=== PATIENT | female | born 1985 | race Caucasian/White ===

== ENCOUNTER → 2020-03-24 12:53 | Outpatient (CLI) | payer OTHER, SELFPAY ==
--- NOTE | ~2020-03-24 | XR_ITS ---
EXAMINATION: XR hand LT 2V, XR hand RT 2V DATE: 03/24/2020 13:54 INDICATION: Polyarticular arthralgia TECHNIQUE: 1. Posteroanterior and lateral views of the left hand were obtained. 2. Posteroanterior and lateral views of the right hand were obtained. COMPARISON: None. FINDINGS: Normal alignment at the bilateral hands and wrists. No fracture. Joint spaces are normal. No cortical erosions. There are few scattered bone islands including at the proximal pole of the left scaphoid t he base of the left fourth proximal phalanx and at the base of the right first metacarpal. Soft tissu es are unremarkable. IMPRESSION: 1. Normal joint spaces in both hands with no erosions to suggest an inflammatory arthritis. Reviewed, dictated and finalized at location A. IMPRESSION: 1. Normal joint spaces in both hands with no erosions to suggest an inflammator y arthritis.
--- NOTE | ~2020-03-24 | XR_ITS ---
EXAMINATION: XR foot LT min 3V, XR foot RT min 3V DATE: 03/24/2020 13:54 INDICATION: Polyarticular arthralgias TECHNIQUE: 1. Dorsoplantar, two oblique and lateral views of the left foot were obtained. 2. Dorsoplantar, two oblique and lateral views of the right foot were obtained. COMPARISON: None. FINDINGS: Alignment is normal at both feet. No fracture. Joint spaces are normal. No erosions. There are a few scattered bone islands. In addition there are axially oriented dense striations in the bilateral dist al tibial metaphyses, 2 on the left and one on the right. A similar linear sclerotic serration was se en at the proximal left tibia on the radiographs of the knee which on initial review was thought to c orrespond to the anterior tibial tuberosity. 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 Soft tissues are unremarkable. No ankle joint effusions. IMPRESSION: 1. Normal joint spaces. No erosions to suggest an inflammatory arthritis. Reviewed, dictated and finalized at location A. IMPRESSION: 1. Normal joint spaces. No erosions to suggest an inflammatory arthritis.
--- NOTE | ~2020-03-24 | XR_ITS ---
XR chest 2V DATE: 03/24/2020 13:54 INDICATION: Arthralgia TECHNIQUE: PA and lateral views COMPARISON: None FINDINGS: Normal heart size. No hilar or mediastinal enlargement. No pulmonary infiltrate or consolid ation, pleural effusion or pulmonary vascular congestion or pneumothorax. Included skeletal structures are unremarkable. IMPRESSION: No active cardiopulmonary disease Reviewed, dictated and finalized at location A.
== END ==
PROVIDERS: Visit Provider Physician Assistant
DX: M25.50 Pain in unspecified joint (principal)
CPT/HCPCS: 71046; 73120; 73630

== ENCOUNTER → 2020-03-24 13:01 | Outpatient (CLI) | payer OTHER, SELFPAY ==
--- NOTE | ~2020-03-24 | XR_ITS ---
EXAMINATION: XR hip BI wo pelvis DATE: 03/24/2020 13:54 INDICATION: Polyarticular arthralgias TECHNIQUE: Anteroposterior and frog-leg lateral views of the left and right hips were obtained. COMPARISON: None. FINDINGS: Normal alignment at both hips. No fracture or suspected avascular necrosis. Joint spaces are normal a t the bilateral hip and sacroiliac joints. Phlebolith in the pelvis. Soft tissues are unremarkable. IMPRESSION: 1. Negative bilateral hip radiographs. Reviewed, dictated and finalized at location A.
--- NOTE | ~2020-03-24 | XR_ITS ---
EXAMINATION: XR knee LT 3V, XR knee RT 3V DATE: 03/24/2020 13:54 INDICATION: Polyarticular arthralgia TECHNIQUE: 1. Weight bearing anteroposterior, sunrise, and flexed lateral views of the left knee were obtained. 2. Weight bearing anteroposterior, sunrise, and flexed lateral views of the right knee were obtained. COMPARISON: None. FINDINGS: Alignment is normal. No fracture. No joint effusion/layering lipohemarthrosis. There few small scatt ered bone islands at the bilateral knees. Indolent appearing small ovoid lucent lesion with periphera l thin sclerotic margins at the posterolateral metaphyseal region of the distal right femur consisten t with a cortical desmoid (tug lesion) which likely of no clinical significance. Soft tissues are unr emarkable. IMPRESSION: 1. Normal joint spaces at the bilateral knees with no joint effusions. Reviewed, dictated and finalized at location A. IMPRESSION: 1. Normal joint spaces at the bilateral knees with no joint effusions.
== END ==
DX: M25.50 Pain in unspecified joint (principal)
CPT/HCPCS: 73521; 73562

== ENCOUNTER 2024-06-06 18:05 | Emergency (ER) | payer OTHER, SELFPAY ==
--- NOTE | ~2024-06-06 | XR_ITS ---
XR foot RT min 3V Ordering provider: El Grey APRN History: . pain over the right proximal great toe and midfoot,no trauma . Comparison: March 24, 2020 FINDINGS: BONES: No acute fracture or dislocation. JOINT SPACES: Normal. No tarsal coalition. SOFT TISSUES: Normal. IMPRESSION: No acute osseous abnormality of the right foot. Reviewed, dictated and finalized at location A.
[2024-06-06 18:20] VITALS: BP 123/69; PULSE 78; RESP 18; TEMP 36.7; O2SAT 100
--- NOTE | 2024-06-06 18:20 | ED.LOWEXIN ---
HPI - Extremity Injury (Lower) General Chief Complaint: Extremity Injury, Lower Stated Complaint: RT Foot Pain Time Seen by Provider: 06/06/24 18:20 Source: patient Mode of arrival: ambulatory Limitations: no limitations History of Present Illness HPI Narrative: Kim is a 38-year-old female patient presenting to the clinic today with complaints of right foot pain x1 week. She reports that she injured her foot when playing tennis last week. Had attempted to play tennis with her son today and her foot is still bothering her. Has pain to the proximal right great toe and over the midfoot. No obvious bruising or swelling. Related Data Home Medications Medication Instructions Recorded Confirmed No Home Medications 06/06/24 06/06/24 Allergies Allergy/AdvReac Type Severity Reaction Status Date / Time nitrofurantoin Allergy Unknown Unknown Verified 06/06/24 18:21 Sulfa (Sulfonamide Allergy Unknown -swelling Verified 06/06/24 18:21 Antibiotics) Review of Systems Review of Systems: Pertinent positives per HPI. Patient denies any fever, chills, rash, headache, visual changes, dizziness, cough, runny nose, sore throat, shortness of breath, chest pain, palpitations, nausea, vomiting, diarrhea, constipation, abdominal pain, or any urinary issues. PMFSH Comments At the time of my signature, I reviewed and agree with the nursing past medical, surgical, social, and family history. There is no relevant family history pertinent to the patient complaint. Exam Narrative: General: Well-developed, well nourished, in no apparent distress Head: Normocephalic, atraumatic. Cardio: Regular rate and rhythm, s1 and s2 normal, no murmur appreciated. Resp: Clear to auscultation bilaterally, no rhonchi, rales, wheezing or rubs. Musculoskeletal: No deformity, no bruising or swelling, tender to palpation over the proximal right great toe and midfoot, grossly normal range of motion, muscle strength strong and equal, peripheral pulse strong, no edema, no cyanosis, normal gait and station Course Course Emergency Course: Portions of this record may have been created with voice recognition software. Level of Care: Express Care Visit Vital Signs Vital signs: Vital signs reviewed MDM - Extremity Injury (Lower) MDM Narrative Medical decision making narrative: At the time of visit patient is resting comfortably on the exam table. Patient appears to be nontoxic. Diagnostics: X-rays negative for any sign of fracture or malalignment of the right foot Plan: I suspect patient has foot strain/acute foot pain. Supportive measures were discussed with the patient and they voiced understanding discharge instructions and agrees to treatment plan. Return precautions reviewed Imaging Data Radiologist's impression: ITS Impressions Foot X-Ray 06/06/24 18:44 IMPRESSION: No acute osseous abnormality of the right foot. Discharge Plan Discharge Clinical Impression: Acute pain of right foot Patient Disposition: Home, Self-Care Condition: Stable Instructions: Antibiotic Form, Foot Sprain (ED) Additional Instructions: X-ray of the right foot is negative for any sign of fracture or malalignment. Rest, ice, elevate as directed Tylenol/motrin for pain as discussed. Gradually bear weight No running or sports until healed. Follow up with your PCP if symptoms persist more than 1 week. May need further evaluation to rule out stress fracture Prescriptions: No Action No Home Medications Follow-up/Referrals: Vane Barragan MD [Primary Care Provider] - Time of Disposition: 18:59 Quality [facility] Nursing [facility]: reviewed/agree
== END 2024-06-06 19:05 | disposition home or self-care (01) ==
PROVIDERS: Emergency Provider Nurse Practitioner Family; PCP Family Medicine
DX: M79.671 Pain in right foot (principal)
CPT/HCPCS: 73630; 99213; G0463

== ENCOUNTER 2024-07-10 08:03 | Emergency (ER) | payer OTHER, SELFPAY ==
--- NOTE | ~2024-07-10 | XR_ITS ---
EXAMINATION: XR chest 2V DATE: 07/10/2024 09:08 INDICATION: Cough and fever TECHNIQUE: PA and lateral views of the chest were obtained. COMPARISON: Chest radiograph dated 03/24/2020 FINDINGS: 3.5 x 2.2 cm nodular opacity lateral left midlung zone. No other airspace opacities, pulmonary edema, pleural effusion or pneumothorax. The cardiomediastinal silhouette is normal. Mild thoracic spondylo sis with chronic mild anterior wedging of a few mid thoracic vertebral bodies. IMPRESSION: 1. Large nodular opacity in the lateral left midlung zone which given patient age and provided histor y most likely represents pneumonia. Recommend radiographic follow-up to resolution. Reviewed, dictated and finalized at location A. ER OPERATOR IMPRESSION: 1. Large nodular opacity in the lateral left midlung zone which given patient a ge and provided history most likely represents pneumonia. Recommend radiographi c follow-up to resolution.
--- NOTE | 2024-07-10 08:22 | ED.URI ---
HPI - URI/Sore Throat General Chief Complaint: Upper Respiratory Infection Stated Complaint: cough and fever Time Seen by Provider: 07/10/24 08:36 Source: patient, RN notes reviewed and old records reviewed Mode of arrival: ambulatory Limitations: no limitations History of Present Illness HPI Narrative: 38-year-old female presents to the [facility] with cough for about 1 week. Fever started on , 2 days ago. Has taken Tylenol. No other medications to help with symptoms. States that she was fatigued, called in sick to work yesterday and stated bed. Patient did declined flu and COVID testing Related Data Allergies Allergy/AdvReac Type Severity Reaction Status Date / Time nitrofurantoin Allergy Unknown Unknown Verified 07/10/24 08:26 Sulfa (Sulfonamide Allergy Unknown -swelling Verified 07/10/24 08:26 Antibiotics) Review of Systems Review of Systems: All systems reviewed & are unremarkable except as noted in HPI and below Constitutional: Constitutional: Reports as per HPI, Reports body ache(s), Reports fatigue and Reports fever(s) ENT: Reports as per HPI and Reports sore throat Cardiovascular: Cardiovascular: Reports no additional cardiovascular complaints, Denies chest pain and Denies dyspnea Respiratory: Respiratory: Reports as per HPI, Denies chest congestion, Reports cough and Denies dyspnea Gastrointestinal: Gastrointestinal: Reports no additional gastrointestinal complaints, Denies abdominal pain, Denies nausea and Denies vomiting Musculoskeletal: Musculoskeletal: Reports no additional musculoskeletal complaints Integumentary/Breasts: Skin/Breast: Reports system reviewed and no additional complaints, except as docu PMFSH Comments At the time of my signature, I reviewed and agree with the nursing past medical, surgical, social, and family history. There is no relevant family history pertinent to the patient complaint. Exam Const: General: cooperative, healthy appearing, comfortable, no acute distress, well developed, alert and well nourished Nutritional Appearance: well nourished Orientation/consciousness: patient oriented x3 Limitations: no limitations HENMT: Head: normal to inspection Ears: hearing grossly normal bilaterally, external ears normal, TM's normal bilaterally, EAC's normal, mastoids normal and no periauricular adenopathy Face/Nose/Sinus: Normal external nose present, normal facial exam and face symmetric Face and sinus: normal facial exam and face symmetric Mouth: Yes Normal oral and palatal mucosa present, Yes lip normal and Yes tongue normal Throat: posterior oropharynx normal, uvula midline and no uvular edema Eyes: General: appearance normal, both eyes and all related structures Alignment and Position: alignment normal Periorbital: periorbital findings normal Neck: Neck: normal visual inspection, full ROM, no lymphadenopathy and no meningeal signs Chest: Chest palpation & inspection: normal inspection of the chest Resp: Effort & Inspection: normal respiratory effort and able to speak in complete sentences Auscultation: clear to auscultation bilaterally, no crackles, no rales, no rhonchi, no wheezes and diminished lung sounds on the left in the lower lung petit Cardio: Rate: regular rate Skin: General skin exam: normal color and no rashes or lesions noted Lesions: no lesions Rashes: no rashes Wounds: no wounds Neuro: General: patient oriented x3, gait normal, tone normal, moves all extremities and no meningeal signs Cognition (Neuro): normal cognition Speech: normal speech Gait exam (Neuro): Normal gait present Extrem: General: normal to inspection, full ROM, capillary refill normal and normal gait Psych: Appearance: grossly normal and well kempt Mental Status: mental status grossly normal Speech and movement: Normal speech and movement present and Clear speech present Affect: normal affect Attitude: cooperative Course Course Level of Care: Express Care Visit Vital Signs Vital signs: Vital Signs Temperature 98.1 F 07/10/24 08:27 Pulse Rate 67 07/10/24 08:27 Respiratory Rate 18 07/10/24 08:27 Blood Pressure 112/69 07/10/24 08:27 Pulse Oximetry 100 07/10/24 08:27 Oxygen Delivery Room Air 07/10/24 08:27 Temperature 98.1 F 07/10/24 08:27 Pulse Rate 67 07/10/24 08:27 Respiratory Rate 18 07/10/24 08:27 Blood Pressure 112/69 07/10/24 08:27 Pulse Oximetry 100 07/10/24 08:27 Oxygen Delivery Room Air 07/10/24 08:27 Reviewed MDM - URI/Sore Throat MDM Narrative Medical decision making narrative: Patient sitting comfortably in exam room. Nontoxic, vitals stable. Patient in no acute distress Patient presents with cough x1 week, fever, fatigue for 2 days. Patient's x-ray showed left upper lobe pneumonia. Patient appropriate for outpatient treatment and follow-up. Discussed importance of following up, radiologist recommended follow-up chest x-ray Discharge instructions reviewed with patient, as well as provided in writing per nursing staff. The instructions also include specific and strict return/GO TO THE ER as well as f/u information. All questions have been answered, and the patient deny any further questions with discharge and discharge plan. Some parts of this dictation were generated by voice recognition software and may contain typographical and/or grammatical inaccuracies. Differential Diagnosis Differential diagnosis: Likely upper respiratory infection, otitis media, sinusitis, viral infection, bronchitis, influenza and pharyngitis Imaging Data Radiologist's impression: EXAMINATION: XR chest 2V DATE: 07/10/2024 09:08 INDICATION: Cough and fever TECHNIQUE: PA and lateral views of the chest were obtained. COMPARISON: Chest radiograph dated 03/24/2020 FINDINGS: 3.5 x 2.2 cm nodular opacity lateral left midlung zone. No other airspace opacities, pulmonary edema, pleural effusion or pneumothorax. The cardiomediastinal silhouette is normal. Mild thoracic spondylosis with chronic mild anterior wedging of a few mid thoracic vertebral bodies. IMPRESSION: 1. Large nodular opacity in the lateral left midlung zone which given patient age and provided history most likely represents pneumonia. Recommend radiographic follow-up to resolution. Critical Care Time Critical Care Time Critical Care Time: No Discharge Plan Discharge Clinical Impression: Left upper lobe pneumonia Patient Disposition: Home, Self-Care Condition: Stable Instructions: Antibiotic Form, Pneumonia (ED) Additional Instructions: Your symptoms are due to pneumonia. It is important that you follow-up with your primary care provider in 2 weeks for repeat x-ray to make sure this is clearing. Stay hydrated with plenty of water, Gatorade, Pedialyte ice pops or Jell-O Take 10 deep breaths every hour while awake -Alternate Tylenol and Motrin per package directions for fever or pain. -Antihistamine medication such as Benadryl at night and Zyrtec/Claritin/Madeline during the day can help improve symptoms. -doing daily nasal irrigations can help relieve pressure your sinuses. Things like a Neti pot -Use Flonase twice a day for 5 days then daily to help reduce the inflammation and dry up your sinuses. -You can also use Mucinex. Be sure to drink plenty of water with this medication at least 8 ounces with every dose and it is important to drink 8 to 10 glasses of water per day. Water is a natural decongestant -Eat and drink things that are easy to swallow, like tea or soup, or popsicles. -Oral rinses such as: Salt water gargles and/or may use topical anesthetic (eg. Chloraseptic spray) or lozenges to relieve dryness or throat pain). -Frequent hand washing or hand dishwashing machine operator is one of the best ways to prevent spread of infection. -Using a vaporizer or humidifier at night will also help thin secretions and help with coughing up phlegm. -Follow up with primary care provider in 7-10 days if condition is not improving - For new or worsening symptoms go directly to the nearest ER Patient Language: Icelandic Prescriptions: New azithromycin 250 mg tablet See Rx Instructions PO .COMPLEX Qty: 6 0RF Rx Instructions: take 500 mg today (day 1), then 250 mg for 4 days (days 2-5) Follow-up/Referrals: Vane Barragan MD [Primary Care Provider] - 2 Weeks ([facility] care follow up ) Stand Alone Forms: Work/School Release IP Time of Disposition: 09:30
[2024-07-10 08:27] VITALS: BP 112/69; PULSE 67; RESP 18; TEMP 36.7; O2SAT 100
== END 2024-07-10 09:34 | disposition home or self-care (01) ==
PROVIDERS: Emergency Provider Nurse Practitioner; PCP Family Medicine
DX: J18.1 Lobar pneumonia, unspecified organism (principal)
CPT/HCPCS: 71046; 99213; G0463

== ENCOUNTER 2025-07-12 11:29 | Emergency (ER) | payer OTHER, SELFPAY ==
[2025-07-12 11:41] VITALS: BP 126/62; PULSE 71; RESP 18; TEMP 36.5; O2SAT 100
[2025-07-12 11:50] LABS: EDUAAPPEAR Cloudy; EDUABILI Negative (Negative); EDUABLOOD 3+ (Negative); EDUACOLOR1 Red; EDUAGLUCOSE Negative (Negative); EDUAKETONE Negative (Negative); EDUALEUKO 1+ (Negative); EDUANITRATE Negative (Negative); EDUAPH 7.0; EDUAPROTEIN 3+ (Negative); EDUASPGRAVITY 1.025; EDUAUROBILI 0.2
--- NOTE | 2025-07-12 12:04 | ED_ITS ---
HPI - Female Genitourinary General Chief complaint: Urogenital-Female Stated complaint: UTI symptoms Time Seen by Provider: 07/12/25 11:45 Source: patient and RN notes reviewed Mode of arrival: ambulatory Limitations: no limitations History of Present Illness HPI Narrative: 39-year-old female presents Express Care complaining of urinary symptoms for 2 hours. Patient reports having dysuria, increased frequency, blood in her urine, hesitancy, and suprapubic pain. Patient denies any fevers, abdominal pain, body aches, chills, nausea, vomiting, diarrhea, flank pain, vaginal bleeding or vaginal discharge. Patient has not taken anything [id number] for symptoms. Patient denies any significant past medical history. Related Data Allergies Allergy/AdvReac Type Severity Reaction Status Date / Time nitrofurantoin Allergy Unknown Unknown Verified 07/12/25 11:44 Sulfa (Sulfonamide Allergy Unknown -swelling Verified 07/12/25 11:44 Antibiotics) Review of Systems Review of Systems: CONSTITUTIONAL: Denies fever, chills, body aches, or sweats. EYES: Denies visual changes, redness, or discharge. ENT: Denies rhinorrhea, congestion, sore throat, or otalgia. CARDIOVASCULAR: Denies chest pain, palpitations, or edema. RESPIRATORY: Denies cough or dyspnea. GASTROINTESTINAL: Denies abdominal pain, nausea, vomiting, or diarrhea. GENITOURINARY: Positive for dysuria, increased frequency, hesitancy, hematuria, suprapubic pain. Negative for vaginal bleeding or discharge, negative for pelvic pain. SKIN: Denies rash or itching. MUSCULOSKELETAL: Denies back pain, joint pain, or myalgia. NEUROLOGIC: Denies headache, numbness, or weakness. PSYCHIATRIC: Denies anxiety or depression. All other systems reviewed are negative, except as documented in HPI. PMFSH Comments At the time of my signature, I reviewed and agree with the nursing past medical, surgical, social, and family history. There is no relevant family history pertinent to the patient complaint. Exam Narrative: GENERAL: This is a well-nourished, well-developed adult, in no apparent distress. They are non ill-appearing, nontoxic appearing. HEAD: normocephalic, atraumatic. EYES: Sclera clear/white. Vision is grossly intact. Conjunctiva normal bilaterally. Extraocular movements intact. EARS: External ears normal,Hearing grossly intact. NOSE: External nose normal THROAT: Mucous membranes moist NECK: Normal range of motion CARDIOVASCULAR: Regular rate and rhythm. Normal S1-S2. No clicks, gallops, rubs, murmurs. RESPIRATORY: Respiratory rate normal, respiratory effort nonlabored, no respiratory distress. Lung sounds clear to auscultation throughout. Lung sounds equal bilaterally. No adventitious lung sounds. GASTROINTESTINAL: Abdomen soft, flat, suprapubic tenderness to palpation, nondistended. Bowel sounds are active. No hepato-splenomegaly, or palpable masses. No guarding or rigidity. No rebound tenderness. SKIN: warm, Dry, intact with no suspicious lesions or rash, good texture and turgor. NEURO: awake, alert, and oriented to person, place and time. There were no obvious focal neurologic abnormalities. EXTREMITIES: No joint tenderness, effusion, or edema noted. BACK: Nontender without deformity. No CVA tenderness. Course Course Emergency Course: Portions of this record may have been created with voice recognition software Level of Care: Express Care Visit Vital Signs Vital signs: Vital Signs Temperature 97.7 F 07/12/25 11:41 Pulse Rate 71 07/12/25 11:41 Respiratory Rate 18 07/12/25 11:41 Blood Pressure 126/62 07/12/25 11:41 Pulse Oximetry 100 07/12/25 11:41 Oxygen Delivery Room Air 07/12/25 11:41 Temperature 97.7 F 07/12/25 11:41 Pulse Rate 71 07/12/25 11:41 Respiratory Rate 18 07/12/25 11:41 Blood Pressure 126/62 07/12/25 11:41 Pulse Oximetry 100 07/12/25 11:41 Oxygen Delivery Room Air 07/12/25 11:41 MDM - Female Genitourinary MDM Narrative Medical decision making narrative: Urine dipstick protein, leukocytes, blood. Urine culture pending. Symptoms consistent urinary tract infection. Patient has allergies to sulfas and Macrobid, will treat with Keflex. Discussed physical exam findings. Advised supportive measures and signs/symptoms to go to the ER. Pt is appropriate for outpt treatment and f/u. Differential Diagnosis Differential diagnosis: Likely urinary tract infection, cystitis and other (Pyelonephritis) Lab Data Attestation: I reviewed the patient's lab results. Labs: Lab Results 11/25/25 Range/Units 11:47 POC Urine Color Red POC Urine Clarity Cloudy POC Urine pH 7.0 POC Ur Specif Story 1.025 POC Urine Protein 3+ (Negative) POC Ur Glucose (UA) Negative (Negative) POC Urine Ketones Negative (Negative) POC Urine Blood 3+ (Negative) POC Urine Nitrite Negative (Negative) POC Urine Bilirubin Negative (Negative) POC Urine Urobilinogen 0.2 POC U Leukocyte Esteras 1+ (Negative) Discharge Plan Discharge Clinical Impression: Urinary tract infection Qualifiers: Urinary tract infection type: site unspecified Hematuria presence: with hematuria Qualified Code(s): N39.0 - Urinary tract infection, site not specified Patient Disposition: Home Condition: Stable Instructions: Antibiotic Form, Urinary Tract Infection in Women (ED) Additional Instructions: Take the antibiotic as prescribed The urine will be sent of for a culture to identify what type of bacteria is causing your infection. If the culture shows that the antibiotic will not get rid of your infection, you will be notified and a new antibiotic will be called in for you. Increase water intake you will need to follow up with your PCP 3-5 days. Go to the ER for any worsening symptoms, abdominal pain, fevers, nausea, vomiting, or any other concerns Patient Language: Greek Prescriptions: New cephalexin 500 mg capsule 500 mg PO BID 5 Days Qty: 10 0RF Follow-up/Referrals: PHYSICIAN,BOBBIN COLLECTOR [Primary Care Provider, Internal Medicine] Time of Disposition: 12:01
--- OUTSIDE RECORDS SUMMARY | 2025-07-12 13:18 | XMS_ITS | Clinical Summary ---
Author Organization [facility] [address] [address] [facility] Address [address] [place] [id number] Care Team Providers Care Regional Merchandising Manager Name Role Phone Vane Barragan MD Primary Care Provider + Jonatan Hernández MD Unavailable [phone] Allergies Active Allergy Reactions Criticality Noted Date Comments Nitrofurantoin Itching Low 03/24/2020 Sulfa (Sulfonamide Antibiotics) Unknown 03/24/2020 unknown reaction; reported from childhood Medications clindamycin-khadra zoyl peroxide 1.2 %(1 % base) -3.75 % gel with pump Apply topically daily Active Active Problems Problem Noted Date Diagnosed Date Polyarthralgia 03/24/2020 Overview (03/31/2020): Labs (03/24/2020): negative AVISE (03/24/2020): LEVI pos by meenakshi neg by IFA Hepatitis negative: 03/2020 Xrays (03/24/2020): B/t feet: negative B/t hands: negative B/t hips: negative B/t knees: distal right femur tug lesion CXR: negative US right hand/wrist (03/31/20): Mild effusions and power doppler on examination which will have to be correlated clinically. Mild synovial thickening in the 3rd MCP and 2nd and 3rd PIP joints. Grade 1 effusion in the 2nd and 3rd PIP joints. Grade 1 power doppler in the radial/scaphoid joint. Assessment & Plan (04/06/2020 1:25 PM CDT): US right hand/wrist (8/14/20): Mild effusions and power doppler on examination which will have to be correlated clinically. Mild synovial thickening in the 3rd MCP and 2nd and 3rd PIP joints. Grade 1 effusion in the 2nd and 3rd PIP joints. Grade 1 power doppler in the radial/scaphoid joint. Serologies were unremarkable. Radiographs of the bilateral feet, hands, hips, knees, and chest were normal. Patient reports recent improvement of joint pain the past 5 days. Did not start meloxicam. Minimal synovitis without tenderness noted on peripheral exam today. Continues to note a few minutes of AM joint stiffness mainly in her hands. Based on mild US findings, unremarkable serologies, and recent improvement of arthralgias, symptoms do not appear to be related to a rheumatological etiology at this time. Patient denied any preceding infections however post-viral syndrome remains a possibility for her urticaria and spontaneously resolved arthralgias. Follow up as needed for any new or worsening symptoms. Seen with Dr. Hernández. Assessment & Plan (03/24/2020 12:27 PM CDT): Patient presents with acute onset of urticaria and arthralgias involving the hands, knees, shoulders, and feet. Rash resolved with systemic steroids and antihistamines however joint pain, synovitis, and stiffness has persisted. Denies any preceding insect bites, spider bites, or tick bites. Denies any recent infections. Synovitis and tenderness noted on peripheral exam today. Symptoms and exam are suspicious for an inflammatory arthritis. Will order appropriate serologies, radiographs, and a right hand/wrist US to further evaluate. Will give meloxicam 15mg daily and advised patient to start this after she has done the hand US. Discussed side effects of the medication, including but not limited to GI upset, kidney, and ulcers. Follow up in 2 weeks. Sooner if needed. Seen with Dr. Hernández. Social History Tobacco Use Types Packs/Day Years Used Date Smoking Tobacco: Never Personal Safety Answer Date Recorded Getting School Help Needed Not on file 11/01 Comments Unknown Sex and Gender Information Value Date Recorded Sex Assigned at Not on file Legal Sex Female 11:52 AM CDT Gender Identity Not on file Sexual Orientation Not on file Last Filed Vital Signs Vital Sign Reading Time Taken Comments Blood Pressure 116/72 04/06/2020 1:16 PM CDT Pulse - - Temperature 36.9 C (98.4 F) 04/06/2020 1:16 PM CDT Respiratory Rate - - Oxygen Saturation - - Inhaled Oxygen Concentration - - Weight 62.1 kg (137 lb) 04/06/2020 1:16 PM CDT Height 160 cm (5' 3) 04/06/2020 1:16 PM CDT Body Mass Index 24.27 04/06/2020 1:16 PM CDT Plan of Treatment Not on file Insurance [employer] OPEN ACCESS Care Teams Regional Merchandising Manager Relationship Specialty Start Date End Date Vane Barragan MD PCP - General Family Medicine 03/15/20 Jonatan Hernández MD [facility] [place] [address] Consulting Physician Rheumatology 03/15/20
--- OUTSIDE RECORDS SUMMARY | 2025-07-12 13:18 | XMS_ITS | Clinical Summary ---
Author Organization [facility] Address [address] [address] Care Team Providers Care Anglesmith Helper Name Role Phone Unavailable Primary Care Provider Unavailabl e Source Comments [facility] [employer],non-owned Affiliates and Associated Physician Practices is amultiple site organization consisting of ambulatory clinics and hospital sitesin [place], [place], [place] and [place]. This disclosure is being madepursuant to the Care Everywhere program and may not contain all information available regarding this patient. Last updated 18.[facility] [employer] Allergies Active Allergy Reactions Criticality Noted Date Comments Sulfa Drugs 06/04/2010 Active Problems Problem Noted Date Diagnosed Date Family history of other diseases of the digestiv e system 05/31/2013 Social History Tobacco Use Types Packs/Day Years Used Date Smoking Tobacco: Never Smokeless Tobacco: Never Alcohol Use Standard Drinks/Week Comments No 0 (1 standard drink = 0.6 oz pur e alcohol) Comments Unknown Sex and Gender Information Value Date Recorded Sex Assigned at Not on file Legal Sex Female 6:36 PM [employer]UEST RE[employer] Gender Identity Not on file Sexual Orientation Not on file Last Filed Vital Signs Vital Sign Reading Time Taken Comments Blood Pressure 110/72 05/31/2013 8:14 AM CDT Pulse 73 05/31/2013 8:14 AM CDT Temperature 36.9 C (98.4 F) 05/31/2013 8:14 AM CDT Respiratory Rate 12 05/31/2013 8:14 AM CDT Oxygen Saturation - - Inhaled Oxygen Concentration - - Weight 58.4 kg (128 lb 12.8 oz) 05/31/2013 8:14 AM CDT Height 160 cm (5' 3) 05/31/2013 8:14 AM CDT Body Mass Index 22.82 05/31/2013 8:14 AM CDT Plan of Treatment Health Maintenance Due Date Last Done Comments LIPID TESTING 1984 MAMMOGRAM 1984 HIV SCREENING 12/16/1999 HEPATITIS C SCREENING 12/11/2002 DTAP/TDAP/TD VACCINES (1 - Tdap) 12/16/2003 HEPATITIS B VACCINE (1 of 3 - 19+ 3-dose series) 12/16/2003 PAP SMEAR 2005 08/18/1998 HPV VACCINE (1 - 3-dose SCDM series) 12/16/2011 Cervical Cancer Screening 2014 PAP with HPV 2014 DEPRESSION SCREENING 08/18/2024 COVID-19 VACCINE (1 - 2024-2 6 season) 2025 INFLUENZA VACCINE (#1) 2025 ZOSTER VACCINE (1 of 2) 2034 HIB VACCINE Aged Out No longer eligi ble based on patient's age to complete this topic MENINGOCOCCAL (Group B) VACC INE SHARED DECISION-MAKING Aged Out No longer eligibl e based on patient's age to complete this topic MENINGOCOCCAL GROUPS A/C/Y/W VACCINE Aged Out No longer eligible b ased on patient's age to complete this topic PNEUMOCOCCAL VACCINE Aged Out No long er eligible based on patient's age to complete this topic Procedures Procedure Name Priority Date/Time Associated Diagnosis Comments PAP SMEAR 1 SLIDE Routine 08/18/1998 12: 00 AM GUEST REQUEST RUNNER from Last 3 Months or Most Recently Relevant to Health Maintenance Results * (ABNORMAL) PAP SMEAR 1 SLIDE (08/18/1998 12:00 AM GUEST REQUEST RUNNER) HM Pap Smear Per pt: WNL. F/u 1 year. [facility] Other (qualifier value) 08/18/1998 Narrative [facility] - 08/18/1998 12:00 AM GUEST REQUEST RUNNER This external order was created through the Results Console. us Historical Provider MD LAB - PATHOLOGY/CYTOLOGY ORDERABLES Final Result [facility] [address] from Last 3 Months or Most Recently Relevant to Health Maintenance
--- OUTSIDE RECORDS SUMMARY | 2025-07-12 13:18 | XMS_ITS | Clinical Summary ---
Author Organization [facility] Address [address] [place] [address] Care Team Providers Care Cake Washer Name Role Phone Unavailable Primary Care Provider Unavailabl e Social History Tobacco Use Types Packs/Day Years Used Date Smoking Tobacco: Never Assessed Comments Unknown Sex and Gender Information Value Date Recorded Sex Assigned at Not on file Legal Sex Female 8:50 AM [facility] Gender Identity Not on file Sexual Orientation Not on file Plan of Treatment Not on file [place] [address] [address] [address]
--- OUTSIDE RECORDS SUMMARY | 2025-07-12 13:18 | XMS_ITS | Encounter Summary ---
Author Organization [facility] Address [address] [place] [address] Care Team Providers Care Thermite Bomb Loader Name Role Phone Unavailable Primary Care Provider Unavailabl e Encounter Details Date Type Department Care Team (Latest Contact Info) Description 10/18/2022 [facility] [place] ADM Social History Tobacco Use Types Packs/Day Years Used Date Smoking Tobacco: Never Assessed Comments Unknown Sex and Gender Information Value Date Recorded Sex Assigned at Not on file Legal Sex Female 8:50 AM [facility] Gender Identity Not on file Sexual Orientation Not on file documented as of this encounter Plan of Treatment Not on file documented as of this encounter Visit Diagnoses Not on filedocumented in this encounter
== END 2025-07-12 12:09 | disposition home or self-care (01) ==
DX: N39.0 Urinary tract infection, site not specified (principal)
CPT/HCPCS: 81003; 87077; 87086; 87186; 99213; G0463